=== PATIENT | male | born 1995 | race Caucasian/White ===

== ENCOUNTER 2016-11-04 15:34 | Emergency (ER) | payer BC, OTHER ==
[2016-11-04] MEDS ORDERED: DIPH/PERTUSS(ACELL)/TETANUS VAC/PF 0.5 ML SYR (>=10YO) IM ONE (16:37)
--- NOTE | 2016-11-04 16:37 | ER Document Report ---
ED Medical Screen (RME) - General Chief Complaint: Suicidal Ideation Stated Complaint: LEFT WRIST/INJURY Time Seen by Provider: 11/04/16 16:30 Mode of Arrival: Ambulatory Information source: Patient Notes: This is a 21-year-old man that presents to the emergency suicidal ideations. The patient recently broke up with his girlfriend. He states he has not been able to eat or drink 3 days because of his depression. He has not been able to sleep. He struck a wall with his left hand a few days ago and is having a lot of swelling and pain in the left hand. TRAVEL OUTSIDE OF THE [place] IN LAST 30 DAYS: No Past Medical History Renal/ Medical History: Denies: Hx Peritoneal Dialysis Physical Exam - Vital signs Vitals: Temp Pulse Resp BP Pulse Ox 98.7 F 89 16 142/95 H 98 11/04/16 15:35 11/04/16 15:35 11/04/16 15:35 11/04/16 15:35 11/04/16 15:35 Course - Vital Signs Vital signs: Temp Pulse Resp BP Pulse Ox 98.7 F 89 16 142/95 H 98 11/04/16 15:35 11/04/16 15:35 11/04/16 15:35 11/04/16 15:35 11/04/16 15:35
--- NOTE | 2016-11-04 17:02 | RADIOLOGY REPORT (SQ) ---
EXAM DESCRIPTION: HAND LEFT 3 VIEWS COMPLETED DATE/TIME: 11/04/2016 4:54 pm REASON FOR STUDY: left hand wrist pain COMPARISON: None. EXAM PARAMETERS: NUMBER OF VIEWS: Three views. TECHNIQUE: AP, lateral and oblique radiographic images acquired of the left hand. LIMITATIONS: None. FINDINGS: MINERALIZATION: Normal. BONES: There is an oblique fracture through the head/ neck of the 5th metacarpal. JOINTS: No effusions. SOFT TISSUES: No soft tissue swelling. No foreign body. OTHER: No other significant finding. IMPRESSION: 5th metacarpal fracture. TECHNICAL DOCUMENTATION: JOB ID: [id number] [employer]- All Rights Reserved
--- NOTE | 2016-11-04 17:04 | RADIOLOGY REPORT (SQ) ---
EXAM DESCRIPTION: WRIST LEFT 3 VIEWS COMPLETED DATE/TIME: 11/04/2016 4:54 pm REASON FOR STUDY: left hand and wrist pain COMPARISON: None. NUMBER OF VIEWS: Three views. TECHNIQUE: AP, lateral, and oblique radiographic images acquired of the left wrist. LIMITATIONS: None. FINDINGS: MINERALIZATION: Normal. BONES: There is a fracture through the head/neck of 5th metacarpal with dorsal angulation. No fractu re is present in the wrist. SOFT TISSUES: No soft tissue swelling. No foreign body. OTHER: No other significant finding. IMPRESSION: 5th metacarpal fracture. Negative wrist. TECHNICAL DOCUMENTATION: JOB ID: [id number] [employer]- All Rights Reserved
--- NOTE | 2016-11-04 17:04 | EKG REPORT ---
SEVERITY:- BORDERLINE ECG - SINUS RHYTHM CONSIDER RIGHT VENTRICULAR HYPERTROPHY : Confirmed by: Henny Salinas MD 04-Nov-2016 17:02:59
[2016-11-04 17:17] LABS: ABSOLUTE BASOPHILS # (AUTO) 0.1 10^3/uL (0.0-0.2); ABSOLUTE LYMPHOCYTES (AUTO) 1.8 10^3/uL (0.5-4.7); ABSOLUTE MONOCYTES (AUTO) 1.1 10^3/uL (0.1-1.4); ABSOLUTE NEUT (AUTO) 5.5 10^3/uL (1.7-8.2); BASOPHILS % (AUTO) 0.8 % (0-2); HEMATOCRIT 50.4 % (37.9-51.0); HEMOGLOBIN 16.9 g/dL (13.5-17.0); HGB HCT DIFFERENCE 0.3; LYMPHOCYTES % (AUTO) 21.1 % (13-45); MEAN CORPUSCULAR HEMOGLOBIN 29.6 pg (27.0-33.4); MEAN CORPUSCULAR HGB CONC 33.6 g/dL (32.0-36.0); MEAN CORPUSCULAR VOLUME 88 fl (80-97); MONOCYTES % (AUTO) 13.1 % (3-13); RED BLOOD COUNT 5.72 10^6/uL (4.35-5.55); RED CELL DISTRIBUTION WIDTH 13.3 % (11.5-14.0); WHITE BLOOD COUNT 8.5 10^3/uL (4.0-10.5)
[2016-11-04 17:26] LABS: APPEARANCE,URINE SLIGHTLY-CLOUDY; BILIRUBIN,URINE NEGATIVE (NEGATIVE); GLUCOSE, URINE NEGATIVE (NEGATIVE); KETONES,URINE 80 mg/dL (NEGATIVE); LEUKOCYTE ESTERASE,URINE TRACE (NEGATIVE); NITRITE,URINE NEGATIVE (NEGATIVE); PROTEIN,URINE 30 mg/dL (NEGATIVE); URINE SPECIFIC GRAVITY 1.029
[2016-11-04 17:37] LABS: ALANINE AMINOTRANSFERASE 25 U/L (21-72); ALBUMIN 5.2 g/dL (3.5-5.0); ALKALINE PHOSPHATASE 86 U/L (38-126); ANION GAP 19 (5-19); ASPARTATE AMINO TRANSFERASE 25 U/L (17-59); BILIRUBIN,DIRECT 0.4 mg/dL (0.0-0.4); BILIRUBIN,TOTAL 1.2 mg/dL (0.2-1.3); BLOOD UREA NITROGEN 17 mg/dL (7-20); CALCIUM 10.6 mg/dL (8.4-10.2); CARBON DIOXIDE 19 mmol/L (22-30); CHLORIDE 105 mmol/L (98-107); CREATININE RESULT 1.25 mg/dL (0.52-1.25); GLUCOSE 99 mg/dL (75-110); POTASSIUM 4.2 mmol/L (3.6-5.0); SODIUM 143.4 mmol/L (137-145); TOTAL PROTEIN 9.1 g/dL (6.3-8.2)
[2016-11-04 17:39] LABS: ALCOHOL < 10 mg/dL (NONE DETECTED)
[2016-11-04 17:40] LABS: URINE BARBITURATES SCREEN NEGATIVE; URINE METHADONE SCREEN NEGATIVE; URINE OPIATES LOW NEGATIVE; URINE PHENCYCLIDINE SCREEN NEGATIVE
--- NOTE | 2016-11-04 17:58 | ER Document Report ---
ED Psych Disorder / Suicide - General Mode of Arrival: Ambulatory Information source: Patient TRAVEL OUTSIDE OF THE [place] IN LAST 30 DAYS: No - HPI Patient complains to provider of: Suicidal ideation Associated symptoms: Other - See above <DANITZA SANTANA - Last Filed: 11/04/16 20:36> <ERNA VERGARA - Last Filed: 11/05/16 00:17> - General Chief Complaint: Suicidal Ideation Stated Complaint: suicidal ideation Time Seen by Provider: 11/04/16 16:30 Notes: Patient is a 21 year old male who presents to the emergency department complaining of suicidal ideation this morning. Patient reports he has been unable to sleep and eat for the past 3 days and has been nauseated, patient has been depressed and having anxiety attacks. Patient reports personal difficulties after recently breaking up with his girlfriend and also issues with his father, job, and school all adding to his stress. Patient reports this morning he thought about killing himself but did not have a plan. Patient states that 3 years ago he had similar thoughts and planned on hanging himself. Patient is not currently being treated for depression and anxiety but is not opposed to medications or care. Patient states he lives with his mother and has a brother nearby as a potential support system. Patient also complains of pain in his left hand after punching a metal door 3 days ago. (DANITZA SANTANA) Past Medical History - General Information source: Patient - Social History Smoking Status: Current Every Day Smoker Chew tobacco use (# tins/day): No Frequency of alcohol use: None Drug Abuse: Marijuana Family History: Reviewed & Not Pertinent Patient has suicidal ideation: Yes Patient has homicidal ideation: No Psychiatric Medical History: Reports: Hx Depression - anxiety Surgical Hx: Negative - Immunizations Hx Diphtheria, Pertussis, Tetanus Vaccination: No <DANITZA SANTANA - Last Filed: 11/04/16 20:36> Review of Systems - Review of Systems Constitutional: No symptoms reported EENT: No symptoms reported Cardiovascular: No symptoms reported Respiratory: No symptoms reported Gastrointestinal: No symptoms reported Genitourinary: No symptoms reported Male Genitourinary: No symptoms reported Musculoskeletal: See HPI, Other - Hand pain Skin: No symptoms reported Hematologic/Lymphatic: No symptoms reported Neurological/Psychological: See HPI, Depression, Anxiety, Suicidal ideation -: Yes All other systems reviewed and negative <DANITZA SANTANA - Last Filed: 11/04/16 20:36> Physical Exam <DANITZA SANTANA - Last Filed: 11/04/16 20:36> <ERNA VERGARA - Last Filed: 11/05/16 00:17> - Vital signs Vitals: Temp Pulse Resp BP Pulse Ox 98.7 F 89 16 142/95 H 98 11/04/16 15:35 11/04/16 15:35 11/04/16 15:35 11/04/16 15:35 11/04/16 15:35 - Notes Notes: GENERAL: Alert, interacts well. No acute distress. HEAD: Normocephalic, atraumatic. EYES: Pupils equal, round, and reactive to light. Extraocular movements intact. ENT: Oral mucosa moist, tongue midline. NECK: Full range of motion. Supple. Trachea midline. LUNGS: Clear to auscultation bilaterally, no wheezes, rales, or rhonchi. No respiratory distress. HEART: Regular rate and rhythm. No murmurs, gallops, or rubs. ABDOMEN: Soft, non-tender. Non-distended. Bowel sounds present in all 4 quadrants. EXTREMITIES: Tenderness to palpation over 3rd, 4th, and 5th metacarpal of left and with minimal swelling and ecchymosis consistent with injury in the past week. Pain limits ability to fully extend 3rd, 4th, and 5th digit but they are able to extend fully with assistance. No edema. No cyanosis. NEUROLOGICAL: Alert and oriented x3. Normal speech. PSYCH: Normal affect, normal mood. SKIN: Abrasion over dorsal aspect of 3rd MCP joint on right hand. Bruising over palm of left hand. (DANITZA SANTANA) Course - Laboratory Result Diagrams: 11/04/16 17:04 11/04/16 17:04 <DANITZA SANTANA - Last Filed: 11/04/16 20:36> - Laboratory Result Diagrams: 11/04/16 17:04 11/04/16 17:04 <ERNA VERGARA - Last Filed: 11/05/16 00:17> - Re-evaluation Re-evalutation: 11/04/16 19:35 CBC unremarkable, CMP shows slightly low CO2 at 19 consistent with patient's history that he has not been eating and drinking for 3 days, urine shows 80 of ketones, trace leukocyte esterase but no bacteria and only 4 WBCs. This will be sent for culture, appears contaminated. Urine drug screen confirms to marijuana as patient admitted to. Undetectable salicylate, acetaminophen and alcohol. Hand and wrist x-rays show dorsally angulated distal left fifth metacarpal fracture. This was placed in an ulnar gutter splint. Patient is referred to orthopedics. Patient was seen in conjunction with behavioral health team, we are in agreement that the patient does not meet IVC criteria, is safe for discharge to home. Is not actively suicidal. Patient is started on Zoloft and referred to [facility] for further outpatient therapy and medication management. Patient is living with his mother, will be discharged under her care. Patient also reports difficulty sleeping, patient will be treated with Vistaril for help with sleep. (ERNA VERGARA) - Vital Signs Vital signs: Temp Pulse Resp BP Pulse Ox 98.2 F 90 18 127/86 H 100 11/04/16 19:58 11/04/16 19:58 11/04/16 19:58 11/04/16 19:58 11/04/16 19:58 - Laboratory Laboratory results interpreted by me: 11/04/16 11/04/16 11/04/16 17:04 17:04 17:04 RBC 5.72 H Monocytes % 13.1 H Carbon Dioxide 19 L Calcium 10.6 H Total Protein 9.1 H Albumin 5.2 H Urine Protein 30 H Urine Ketones 80 H Urine Urobilinogen 2.0 H Ur Leukocyte Esterase TRACE H Salicylates < 1.0 L Acetaminophen < 10 L - EKG Interpretation by Me Additional EKG results interpreted by me: 11/04/16 19:35 EKG shows sinus rhythm at a rate of 65, normal axis, normal intervals, no ST segment elevations or depressions, no T-wave inversions but there is T-wave flattening in aVL per my interpretation. (ERNA VERGARA) Procedures - Immobilization Left hand Pre-Proc Neuro Vasc Exam: Normal Immobilizer type: Ulnar, Sling Performed by: PCT Post-Proc Neuro Vasc Exam: Normal, Unchanged from pre-exam Alignment checked and good: Yes <ERNA VERGARA - Last Filed: 11/05/16 00:17> Discharge <DANITZA SANTANA - Last Filed: 11/04/16 20:36> <ERNA VERGARA - Last Filed: 11/05/16 00:17> - Discharge Clinical Impression: Unspecified depressive disorder, Situational hypertension Fracture of fifth metacarpal bone of left hand Qualifiers: Encounter type: initial encounter Fracture type: closed Metacarpal location: neck Fracture alignment: nondisplaced Qualified Code(s): S62.367A - Nondisplaced fracture of neck of fifth metacarpal bone, left hand, initial encounter for closed fracture Condition: Stable Disposition: HOME, SELF-CARE Additional Instructions: DEPRESSION: Your evaluation reveals that you have mental depression. While symptoms may be vague, they often include disturbance of sleep, fatigue, loss of appetite , and general loss of interest in life. While depression may be a side effect of drugs, or a reaction to a major change in your life, many cases have no known cause. If depression is acute, and related to a major loss in your life, you can expect it to clear completely with time. If you have been depressed a long time , are prone to repeated bouts of depression or low mood, or have been thinking of suicide, get help. Depression can be treated with anti-depressant medication and counselling. Long-term depression will often take a few weeks to clear, even with appropriate medication. Follow-up care is important. SUICIDAL IDEATION: Suicidal ideation is a common medical term for thoughts about suicide, which may be as detailed as a formulated plan, without the suicidal act itself. Although most people who undergo suicidal ideation do not commit suicide, some go on to make suicide attempts. The range of suicidal ideation varies greatly from fleeting to detailed planning, role playing, and unsuccessful attempts. While thoughts about suicide are common, most people do not carry out serious actions to commit suicide. Based upon your evaluation and discussion with you, we do not believe you are currently at risk to act upon your thoughts of suicide. You have agreed to return to the Emergency Department, at any time , if you feel inclined to act upon your suicidal thoughts. FOLLOW-UP CARE: Follow-up with [facility] tomorrow morning at 8 AM for your mental health services. If you experience worsening or a significant change in your symptoms, notify the physician immediately or return to the Emergency Department at any time for re-evaluation. Fractured Fifth Metacarpal (Boxer's) You have a fracture of the fifth metacarpal bone in the hand, often called a Boxer's Fracture. The fracture is usually caused by striking the knuckle against a hard surface -- such as hitting a wall with the fist. This fracture heals well. Some degree of angle in the fracture is perfectly acceptable, resulting in only a slightly rounder knuckle. Your physician has determined whether your fracture could benefit from "setting", and has outlined a treatment plan for you. The usual treatment is splinting for four to six weeks -- a cast is not usually necessary. At first, the injury should be elevated and ice packed. Please call Dr. Aevry from orthopedic surgery tomorrow to discuss your treatment further. They will arrange to see you in follow-up within the next week. Contact the doctor at once if swelling or pain becomes severe, or if numbness develops. Prescriptions: Hydroxyzine Pamoate [Vistaril 50 mg Capsule] 50 mg PO QHS #14 capsule Sertraline HCl [Zoloft 50 mg Tablet] 50 mg PO DAILY #30 tablet Referrals: [facility] [Outside] - 11/05/16 8:00 am CHASE CORONA MD [ACTIVE STAFF] - Follow up in 1 week Scribe Attestation: 11/05/16 00:17 I personally performed the services described in the documentation, reviewed and edited the documentation which was dictated to the scribe in my presence, and it accurately records my words and actions. (ERNA VERGARA) Scribe Documentation - Scribe Written by Gerardo:: gerardo Gardner, 11/04/16, [id number] acting as scribe for :: Luke <DANITZA SANTANA - Last Filed: 11/04/16 20:36>
--- NOTE | 2016-11-04 18:35 | ER Document Report ---
ED Psych Disorder / Suicide - General Chief Complaint: Suicidal Ideation Stated Complaint: LEFT WRIST/INJURY Time Seen by Provider: 11/04/16 16:30 Mode of Arrival: Ambulatory TRAVEL OUTSIDE OF THE [place] IN LAST 30 DAYS: No - HPI Notes: This is a 21-year-old man that presents to the emergency suicidal ideations. The patient recently broke up with his girlfriend. He states he has not been able to eat or drink 3 days because of his depression. He has not been able to sleep. He struck a wall with his left hand a few days ago and is having a lot of swelling and pain in the left hand. Patient disclosed that he felt depressed for a long time and this is the first time he has never told anybody. He continued to state that he is suicidal. Patient states that he broke up with his girlfriend 3 days ago. He continued disclosed that he hit a metal door has been so hard on him. He states that he "kind of freaked out." He continued disclosed that at first it was just depression however after he left he felt "worse and worse." He stated that he started to think of suicide about 1 or 2:00 this afternoon stating that he thought "it would be better if he was not there." He continued disclosed that he does not want to put this on anyone. He states that he does not feel he is worse to help. He continued disclosed that everything that has been hard on him it is not just his growth. He states that he has been trying to get his GED for many years. He continued disclosed that has been difficult because of a learning disorder. He states that he also has had difficulty with finding employment and difficulty with his father. Patient is alert and orientated to person place time and circumstance. Mood is dysphoric with tearful affect. Patient endorses suicidal ideation with no plan means or intent. Patient denies homicidal ideation. Patient denies auditory visual hallucinations; patient is not demonstrating any behaviors congruent with responding to internal stimuli. No delusions are noted. Thought process is currently organized and linear. Conversational speech was within normal rate tone and prosody. Eye contact was well-maintained. Intellectual abilities appear to be within average range with a self-report of learning disability. Attention and concentration are good. Insight, judgment, impulse control is fair. 311 (F32.9) unspecified depressive disorder 10\\plan: Patient is psychiatrically clear for discharge. Patient does not meet IVC criteria per [place] GS 120 2C. Patient endorses suicidal ideation however he has no plans means or intent. Patient is not in psychosis presents by organized linear thought process and eye contact was well-maintained. Patient is recommended for outpatient services. Dr. Walter was consulted on the care management of this patient; attending physician is in agreement with recommendations and disposition. Past Medical History - General Information source: Patient - Social History Smoking Status: Current Every Day Smoker Chew tobacco use (# tins/day): No Frequency of alcohol use: None Drug Abuse: Marijuana Family History: Reviewed & Not Pertinent Patient has suicidal ideation: Yes Patient has homicidal ideation: No Renal/ Medical History: Denies: Hx Peritoneal Dialysis Psychiatric Medical History: Reports: Hx Depression - anxiety Surgical Hx: Negative - Immunizations Hx Diphtheria, Pertussis, Tetanus Vaccination: No Physical Exam - Vital signs Vitals: Temp Pulse Resp BP Pulse Ox 98.7 F 89 16 142/95 H 98 11/04/16 15:35 11/04/16 15:35 11/04/16 15:35 11/04/16 15:35 11/04/16 15:35 Course - Vital Signs Vital signs: Temp Pulse Resp BP Pulse Ox 98.7 F 89 16 142/95 H 98 11/04/16 15:35 11/04/16 15:35 11/04/16 15:35 11/04/16 15:35 11/04/16 15:35 - Laboratory Result Diagrams: 11/04/16 17:04 11/04/16 17:04 Laboratory results interpreted by me: 11/04/16 11/04/16 11/04/16 17:04 17:04 17:04 RBC 5.72 H Monocytes % 13.1 H Carbon Dioxide 19 L Calcium 10.6 H Total Protein 9.1 H Albumin 5.2 H Urine Protein 30 H Urine Ketones 80 H Urine Urobilinogen 2.0 H Ur Leukocyte Esterase TRACE H Salicylates < 1.0 L Acetaminophen < 10 L Discharge - Discharge Clinical Impression: Unspecified depressive disorder Condition: Stable Disposition: HOME, SELF-CARE Additional Instructions: DEPRESSION: Your evaluation reveals that you have mental depression. While symptoms may be vague, they often include disturbance of sleep, fatigue, loss of appetite , and general loss of interest in life. While depression may be a side effect of drugs, or a reaction to a major change in your life, many cases have no known cause. If depression is acute, and related to a major loss in your life, you can expect it to clear completely with time. If you have been depressed a long time , are prone to repeated bouts of depression or low mood, or have been thinking of suicide, get help. Depression can be treated with anti-depressant medication and counselling. Long-term depression will often take a few weeks to clear, even with appropriate medication. Follow-up care is important. SUICIDAL IDEATION: Suicidal ideation is a common medical term for thoughts about suicide, which may be as detailed as a formulated plan, without the suicidal act itself. Although most people who undergo suicidal ideation do not commit suicide, some go on to make suicide attempts. The range of suicidal ideation varies greatly from fleeting to detailed planning, role playing, and unsuccessful attempts. While thoughts about suicide are common, most people do not carry out serious actions to commit suicide. Based upon your evaluation and discussion with you, we do not believe you are currently at risk to act upon your thoughts of suicide. You have agreed to return to the Emergency Department, at any time , if you feel inclined to act upon your suicidal thoughts. FOLLOW-UP CARE: Follow-up with [facility] tomorrow morning at 8 AM for your mental health services. If you experience worsening or a significant change in your symptoms, notify the physician immediately or return to the Emergency Department at any time for re-evaluation. Referrals: [facility] [Outside] - 11/05/16 8:00 am
[2016-11-04] MEDS ORDERED: ONDANSETRON 4 MG TAB.RAPDIS PO ONE (19:34)
[2016-11-04] MEDS ORDERED: HYDROCODONE/ACETAMINOPHEN 5-325 MG TABLET PO ONE (19:47)
[2016-11-04 20:01] VITALS: BP 127/86
== END 2016-11-04 20:05 | disposition home or self-care (01) ==
LOC: ER 15:34
PROC: 2W3FX1Z Immobilization of Left Hand using Splint (ICD-10-PCS; principal; 2016-11-04)
DX: F32.9 Major depressive disorder, single episode, unspecified (principal); S62.367A Nondisplaced fracture of neck of fifth metacarpal bone, left hand, initial encounter for closed fracture; R45.851 Suicidal ideations; W22.09XA Striking against other stationary object, initial encounter; I10 Essential (primary) hypertension; F17.200 Nicotine dependence, unspecified, uncomplicated
CPT/HCPCS: 93005; 99284; 36415; 80307 ×4; 85025; 80053; 81001; 73130; 73110; 93010; 29125; S0119

== ENCOUNTER 2016-12-23 11:49 | Emergency (ER) | payer OTHER ==
[2016-12-23] MEDS ORDERED: CEFAZOLIN 1 GM/D5W RTU 50 ML IV ONE (12:18)
[2016-12-23] MEDS ORDERED: DIPH/PERTUSS(ACELL)/TETANUS VAC/PF 0.5 ML SYR (>=10YO) IM ONE (12:18)
--- NOTE | 2016-12-23 12:24 | ER Document Report ---
ED Extremity Problem, Lower - General Mode of Arrival: Medic Information source: Patient TRAVEL OUTSIDE OF THE [place] IN LAST 30 DAYS: No - HPI Patient complains to provider of: Injury Location: Leg - left diaz Occurred: Just prior to arrival Where: Work Associated symptoms: Other - see above Exacerbated by: Movement, Walking <JES MCWILLIAMS - Last Filed: 12/23/16 16:43> - HPI Pain Level: 3 <ERNA VERGARA - Last Filed: 12/23/16 16:51> - General Chief Complaint: Leg Injury Stated Complaint: LEFT LEG INJURY Time Seen by Provider: 12/23/16 12:01 Notes: Patient is a 21 year old male who presents to the ED with complaints of an avulsion to his left diaz secondary to scraping a 200-250 pound metal lid down his leg while at work just [employer]. Patient is able to walk however it is painful to bare weight. Patient is unsure when his last tetanus vaccination was. (JES MCWILLIAMS) - Related Data Allergies/Adverse Reactions: No Known Allergies Allergy (Unverified 12/23/16 11:53) Past Medical History - General Information source: Patient - Social History Smoking Status: Current Every Day Smoker Smoking Education Provided: Yes - Greater than 5 mintues Frequency of alcohol use: Occasional Drug Abuse: None Family History: Reviewed & Not Pertinent Renal/ Medical History: Denies: Hx Peritoneal Dialysis Psychiatric Medical History: Reports: Hx Depression - anxiety - Immunizations Hx Diphtheria, Pertussis, Tetanus Vaccination: No <JES MCWILLIAMS - Last Filed: 12/23/16 16:43> Review of Systems - Review of Systems Constitutional: No symptoms reported EENT: No symptoms reported Cardiovascular: No symptoms reported Respiratory: No symptoms reported Gastrointestinal: No symptoms reported Genitourinary: No symptoms reported Male Genitourinary: No symptoms reported Musculoskeletal: See HPI, Other - left leg pain Skin: See HPI, Other - avulsion to left diaz Hematologic/Lymphatic: No symptoms reported Neurological/Psychological: No symptoms reported <JES MCWILLIAMS - Last Filed: 12/23/16 16:43> Physical Exam <JES MCWILLIAMS - Last Filed: 12/23/16 16:43> <ERNA VERGARA - Last Filed: 12/23/16 16:51> - Vital signs Vitals: Temp Pulse Resp BP Pulse Ox 98.0 F 65 19 133/83 H 100 12/23/16 11:53 12/23/16 11:53 12/23/16 11:53 12/23/16 11:53 12/23/16 11:53 - Notes Notes: GENERAL: Alert, interacts well. No acute distress. HEAD: Normocephalic, atraumatic. EYES: Pupils equal, round, and reactive to light. Extraocular movements intact. ENT: Oral mucosa moist, tongue midline. NECK: Full range of motion. Supple. Trachea midline. LUNGS: No respiratory distress. EXTREMITIES: Moves all 4 extremities spontaneously. No edema. No cyanosis. Large flap shaped avulsion to skin on distal left tibia, [id number], able to visualize tibia and some muscle and tendon. No defect noted to bone. Pulses intact, capillary refill intact, full ROM, full muscle strength, sensation intact on left leg. NEUROLOGICAL: Alert and oriented x3. Normal speech. PSYCH: Normal affect, normal mood. SKIN: Warm, dry, normal turgor. Large flap shaped avulsion to skin on distal left tibia. (JES MCWILLIAMS) Course - Consults Power Checker Time consulted: 12:18 Dr. Avery Time consulted: 13:12 Consulted provider: follow-up in office <JES MCWILLIAMS - Last Filed: 12/23/16 16:43> <ERNA VERGARA - Last Filed: 12/23/16 16:51> - Re-evaluation Re-evalutation: 12/23/16 14:[address] Avery the orthopedic surgeon commission agent [employer], states that I should get an x-ray and so long as there is no major bony defect and there are no foreign bodies that I should repair the wound in the emergency department after irrigating it and he will follow the patient on antibiotics as an outpatient. I did discuss this plan with the patient after a normal x-ray was returned and he is agreeable to this plan. Patient did receive Dilaudid for pain control here as well as Ancef for infection prevention. (ERNA VERGARA) - Vital Signs Vital signs: Temp Pulse Resp BP Pulse Ox 98.0 F 65 19 133/83 H 100 12/23/16 11:53 12/23/16 11:53 12/23/16 11:53 12/23/16 11:53 12/23/16 11:53 - Consults Power Checker Reason for consultation: 12/23/16 12:[address] Avery, orthopedist commission agent [employer]. Left a message on his phone to call me. (JES MCWILLIAMS) Dr. Avery Reason for consultation: 12/23/16 13:12 Discussed patient. He said to get an x ray, if there are no foreign bodies or a large chunk of bone missing I can clean and repair in the ED. He will be happy to see patient in his office and follow it. If I prefer, he will be in the hospital at 1630 to do a hip repair and he can assess the patient then if I am uncomfortable. 12/23/16 14:34 Discussed patient and x ray results. I will proceed with suturing the wound. (JES MCWILLIAMS) Procedures - Laceration/Wound Repair Left anterior tibia Wound length (cm): 12 Wound's Depth, Shape: Into muscle, Flap Laceration pre-procedure: Sterile PPE donned, Sterile drapes applied, Shur- Clens applied Anesthetic type: 1% Lidocaine w/epi Volume Anesthetic (mLs): 20 Wound explored: Clean, No foreign body removed Irrigated w/ Saline (mLs): 1,000 Wound Debrided: Minimal Wound Repaired With: Sutures Suture Size/Type: 4:0, 3:0, Ethilon Number of Sutures: 13 Layer Closure?: Yes Deep Layer Suture Size/Type: 4:0, Other - Vicryl Number Deep Layer Sutures: 20 Post-procedure wound care: Sterile dressing applied Post-procedure NV exam normal: Yes Complications: No <ERNA VERGARA - Last Filed: 12/23/16 16:51> Discharge <JES MCWILLIAMS - Last Filed: 12/23/16 16:43> <ERNA VERGARA - Last Filed: 12/23/16 16:51> - Discharge Clinical Impression: Laceration of left lower leg Qualifiers: Encounter type: initial encounter Qualified Code(s): S81.812A - Laceration without foreign body, left lower leg, initial encounter Condition: Stable Disposition: HOME, SELF-CARE Additional Instructions: Laceration Care Your laceration has been sutured to keep the skin edges aligned during healing. Please have the sutures removed in 10-14 days. Please follow the care instructions the doctor has outlined for you and return for further care, according to the schedule you've been given. Keep the wound and dressing clean. Unless you were told otherwise, you may shower daily, blotting the wound dry with a clean, unused towel. At other times, If the dressing gets wet or blood soaked, remove it and blot the wound dry, then reapply a new dressing. Unless you were instructed otherwise, dressings should be changed at least daily. If any signs of infection occur (swelling, redness, increasing tenderness, red streaks, tender lumps in the armpit or groin above the laceration, or fever) , see the doctor immediately. Please follow-up with Dr. Avery. Call his office tomorrow morning to arrange a follow-up appointment. Prescriptions: Amox Tr/Potassium Clavulanate [Augmentin 875-125 Tablet] 1 tab PO BID 10 Days Referrals: CHASE CORONA MD [ACTIVE STAFF] - Follow up in 3-5 days (Call for follow -up appointment tomorrow morning.) Scribe Attestation: 12/23/16 16:51 I personally performed the services described in the documentation, reviewed and edited the documentation which was dictated to the scribe in my presence, and it accurately records my words and actions. (ERNA VERGARA) Scribe Documentation - Scribe Written by Gerardo:: gerardo Hoyt, 12/23/2016, 1219 acting as scribe for :: Luke <JES MCWILLIAMS - Last Filed: 12/23/16 16:43>
[2016-12-23] MEDS ORDERED: HYDROMORPHONE HCL INJ/PF 2 MG/ML AMPULE IV ONE ×3 (13:11→14:59)
--- NOTE | 2016-12-23 14:14 | RADIOLOGY REPORT (SQ) ---
EXAM DESCRIPTION: TIBIA FIBULA LEFT COMPLETED DATE/TIME: 12/23/2016 2:02 pm REASON FOR STUDY: dropped large metal plate on tibia COMPARISON: None. NUMBER OF VIEWS: Two views. TECHNIQUE: Two radiographic images acquired of the left tibia and fibula to include the knee and ank le in at least one projection. LIMITATIONS: None. FINDINGS: MINERALIZATION: Normal. BONES: No acute fracture or dislocation. No worrisome bone lesions. SOFT TISSUES: The soft tissue injury is seen on the medial aspect the distal leg. OTHER: No other significant finding. IMPRESSION: Soft tissue injury with no osseous abnormality. TECHNICAL DOCUMENTATION: JOB ID: [id number] [employer]- All Rights Reserved
[2016-12-23] MEDS ORDERED: LIDOCAINE 1% INJ-PF (10 MG/ML) 30 ML SDV INJ ONE (14:30)
[2016-12-23] MEDS ORDERED: BUPIVACAINE HCL 0.5%-EPI 1:200000 INJ/PF 30 ML VIAL INJ ONE (14:32)
[2016-12-23] MEDS ORDERED: LIDOCAINE 0.5%/EPINEPHRINE INJ 50 ML VIAL INJ ONE (14:55)
[2016-12-23] MEDS ORDERED: HYDROCODONE/ACETAMINOPHEN 5-325 MG 6 TAB/DSPK PO PRN (16:50)
[2016-12-23 17:04] VITALS: BP 144/68
== END 2016-12-23 17:11 | disposition home or self-care (01) ==
LOC: ER 11:49
PROC: 0JQP0ZZ Repair Left Lower Leg Subcutaneous Tissue and Fascia, Open Approach (ICD-10-PCS; principal; 2016-12-23)
DX: S81.812A Laceration without foreign body, left lower leg, initial encounter (principal); W22.8XXA Striking against or struck by other objects, initial encounter; Y99.0 Civilian activity done for income or pay; F17.200 Nicotine dependence, unspecified, uncomplicated; Z71.6 Tobacco abuse counseling
CPT/HCPCS: 73590; 90715; 12034; J0690; J3490; J1170

== ENCOUNTER 2016-12-24 18:16 | Inpatient (IN) | payer OTHER ==
[2016-12-24] MEDS ORDERED: PROMETHAZINE HCL 25 MG TABLET PO ONE (19:18)
[2016-12-24] MEDS ORDERED: OXYCODONE-ACETAMINOPHEN 5-325 MG TABLET PO ONE (19:18)
--- NOTE | 2016-12-24 19:27 | ER Document Report ---
ED Medical Screen (RME) - General Chief Complaint: Leg Pain Stated Complaint: WOUND RECHECK Time Seen by Provider: 12/24/16 19:15 Notes: Patient sustained a laceration to his left lower leg yesterday and was seen here yesterday and the wound was sutured. He was put on Augmentin. The dressing has been changed 3 times, thus far, and the dressing change this afternoon the lower leg below the wound was noted to be swollen and the wound itself was noted to be pink and red in color, both of which are changes from before. Patient is not aware of any fever. TRAVEL OUTSIDE OF THE [place] IN LAST 30 DAYS: No - Related Data Allergies/Adverse Reactions: No Known Allergies Allergy (Verified 12/24/16 18:17) Past Medical History - Social History Chew tobacco use (# tins/day): No Frequency of alcohol use: Occasional Drug Abuse: None Renal/ Medical History: Denies: Hx Peritoneal Dialysis Psychiatric Medical History: Reports: Hx Depression - anxiety - Immunizations Hx Diphtheria, Pertussis, Tetanus Vaccination: No Physical Exam - Vital signs Vitals: Temp Pulse Resp BP Pulse Ox 97.7 F 105 H 20 152/80 H 99 12/24/16 18:17 12/24/16 18:17 12/24/16 18:17 12/24/16 18:17 12/24/16 18:17 Course - Vital Signs Vital signs: Temp Pulse Resp BP Pulse Ox 97.7 F 105 H 20 152/80 H 99 12/24/16 18:17 12/24/16 18:17 12/24/16 18:17 12/24/16 18:17 12/24/16 18:17
--- NOTE | 2016-12-24 20:15 | ER Document Report ---
ED Extremity Problem, Lower - General Mode of Arrival: Ambulatory Information source: Patient TRAVEL OUTSIDE OF THE [place] IN LAST 30 DAYS: No <DARNELL BETH - Last Filed: 12/24/16 23:17> <ERNA VERGARA - Last Filed: 12/25/16 00:43> - General Chief Complaint: Leg Pain Stated Complaint: WOUND RECHECK Time Seen by Provider: 12/24/16 19:15 Notes: Patient is a 21-year-old male who presents to the emergency department today with concerns of possible infection to a recently repaired laceration. Patient had this laceration repaired yesterday, he was given Ancef here, and sent home on Augmentin. Muscle, tendon, and bone were exposed prior to suturing. There is increased swelling and redness over the laceration. (DARNELL BETH) - Related Data Allergies/Adverse Reactions: No Known Allergies Allergy (Verified 12/24/16 18:17) Home Medications: Current Home Medications No Home Medications 12/24/16 [History] Past Medical History - General Information source: Patient - Social History Smoking Status: Current Every Day Smoker Cigarette use (# per day): Yes Chew tobacco use (# tins/day): No Frequency of alcohol use: Occasional Drug Abuse: None Lives with: Family Family History: Reviewed & Not Pertinent Patient has suicidal ideation: No Patient has homicidal ideation: No Psychiatric Medical History: Reports: Hx Anxiety, Hx Depression Traumatic Medical History: Reports: Other - Hx large laceration to distal left leg anteriorly after dropping 200-250 pound metal lid on leg at work - Immunizations Hx Diphtheria, Pertussis, Tetanus Vaccination: No <DARNELL BETH - Last Filed: 12/24/16 23:17> Review of Systems - Review of Systems Constitutional: No symptoms reported EENT: No symptoms reported Cardiovascular: No symptoms reported Respiratory: No symptoms reported Gastrointestinal: No symptoms reported Genitourinary: No symptoms reported Male Genitourinary: No symptoms reported Musculoskeletal: No symptoms reported Skin: See HPI, Other - possible infection to wound Hematologic/Lymphatic: No symptoms reported Neurological/Psychological: No symptoms reported -: Yes All other systems reviewed and negative <DARNELL BETH - Last Filed: 12/24/16 23:17> Physical Exam <DARNELL BETH - Last Filed: 12/24/16 23:17> <ERNA VERGARA - Last Filed: 12/25/16 00:43> - Vital signs Vitals: Temp Pulse Resp BP Pulse Ox 97.7 F 105 H 20 152/80 H 99 12/24/16 18:17 12/24/16 18:17 12/24/16 18:17 12/24/16 18:17 12/24/16 18:17 - Notes Notes: Physical Exam: General: Alert, appears well. HEENT: Normocephalic. Atraumatic. PERRL. Extraocular movements intact. Oropharynx clear. Neck: Supple. Non-tender. Respiratory: No respiratory distress. Abdominal: Normal Inspection. No distension. Back: Non-tender. No deformity or step off. Extremities: Moves all four extremities. Upper extremities: Normal inspection. Normal ROM. Lower extremities: 6x6 cm freshly sutured laceration to left distal left tibia. Surrounding erythema extended 8cm inferiorly, 6cm medially, and 6cm superiorly. Significant swelling over medial malleolus and anterior portion of left ankle. Mild swelling over lateral malleolus. Extensive bruising medially. No purulent drainage. Good pulses. Brisk capillary refill. Neurological: Normal cognition. AAOx4. Normal speech. Psychological: Normal affect. Normal Mood. Skin: see lower extremity exam (DARNELL BETH) Course - Laboratory Result Diagrams: 12/24/16 20:30 12/24/16 20:30 - Consults Ortho Time consulted: 20:18 - Spoke with Dr. Waldron, agrees to admit the patient. <DARNELL BTEH - Last Filed: 12/24/16 23:17> - Laboratory Result Diagrams: 12/24/16 20:30 12/24/16 20:30 <ERNA VERGARA - Last Filed: 12/25/16 00:43> - Re-evaluation Re-evalutation: 12/24/16 20:[address] Waldron, agrees to admit the patient for IV antibiotics for the cellulitis developing around the wound and consideration of washout should this not improve by morning. (ERNA VERGARA) - Vital Signs Vital signs: Temp Pulse Resp BP Pulse Ox 97.5 F 60 16 117/90 H 100 12/24/16 23:10 12/24/16 23:10 12/24/16 23:10 12/24/16 23:10 12/24/16 23:10 - Laboratory Laboratory results interpreted by me: 12/24/16 20:30 RDW 14.3 H Monocytes % 17.0 H Absolute Monocytes 1.6 H Discharge <DARNELL BETH - Last Filed: 12/24/16 23:17> - Discharge Admitting Provider: [facility] Unit Admitted: Surgical Floor <ERNA VERGARA - Last Filed: 12/25/16 00:43> - Discharge Clinical Impression: Left leg cellulitis Laceration of left lower leg Qualifiers: Encounter type: sequela Qualified Code(s): S81.812S - Laceration without foreign body, left lower leg, sequela Condition: Stable Disposition: ADMITTED INPATIENT Scribe Attestation: 12/25/16 00:43 I personally performed the services described in the documentation, reviewed and edited the documentation which was dictated to the scribe in my presence, and it accurately records my words and actions. (ERNA VERGARA) Scribe Documentation - Scribe Written by Marlee:: Marlee Mane, 12/24/2016 2317 acting as scribe for :: Luke <DARNELL BETH - Last Filed: 12/24/16 23:17>
[2016-12-24] MEDS ORDERED: HYDROMORPHONE HCL INJ/PF 2 MG/ML AMPULE IV ONE (20:20)
[2016-12-24] MEDS ORDERED: CLINDAMYCIN 600 MG/D5W RTU 50 ML IV ONE (20:20)
[2016-12-24 20:54] LABS: ABSOLUTE EOSINOPHILS # (AUTO) 0.1 10^3/uL (0.0-0.6); ABSOLUTE LYMPHOCYTES (AUTO) 1.8 10^3/uL (0.5-4.7); ABSOLUTE MONOCYTES (AUTO) 1.6 10^3/uL (0.1-1.4); ABSOLUTE NEUT (AUTO) 5.8 10^3/uL (1.7-8.2); BASOPHILS % (AUTO) 0.4 % (0-2); EOSINOPHILS % (AUTO) 0.7 % (0-6); HEMATOCRIT 43.8 % (37.9-51.0); HEMOGLOBIN 14.9 g/dL (13.5-17.0); HGB HCT DIFFERENCE 0.9; MEAN CORPUSCULAR HEMOGLOBIN 31.1 pg (27.0-33.4); MEAN CORPUSCULAR HGB CONC 34.2 g/dL (32.0-36.0); MEAN CORPUSCULAR VOLUME 91 fl (80-97); RED BLOOD COUNT 4.81 10^6/uL (4.35-5.55); RED CELL DISTRIBUTION WIDTH 14.3 % (11.5-14.0); SEGMENTED NEUTROPHILS % (AUTO) 62.9 % (42-78); WHITE BLOOD COUNT 9.3 10^3/uL (4.0-10.5)
[2016-12-24 21:18] LABS: ALANINE AMINOTRANSFERASE 28 U/L (21-72); ALBUMIN 4.2 g/dL (3.5-5.0); ALKALINE PHOSPHATASE 82 U/L (38-126); ANION GAP 13 (5-19); ASPARTATE AMINO TRANSFERASE 21 U/L (17-59); BILIRUBIN,DIRECT 0.4 mg/dL (0.0-0.4); BILIRUBIN,TOTAL 0.7 mg/dL (0.2-1.3); BLOOD UREA NITROGEN 19 mg/dL (7-20); CALCIUM 9.6 mg/dL (8.4-10.2); CARBON DIOXIDE 23 mmol/L (22-30); CHLORIDE 103 mmol/L (98-107); GLUCOSE 91 mg/dL (75-110); POTASSIUM 4.6 mmol/L (3.6-5.0); SODIUM 139.3 mmol/L (137-145); TOTAL PROTEIN 7.1 g/dL (6.3-8.2)
[2016-12-24] MEDS ORDERED: RINGERS SOLUTION,LACTATED 1,000 ML IV PRN (22:42)
[2016-12-24] MEDS ORDERED: DEXTROSE 40% GEL 15 GM TUBE PO PRN ×2 (22:42)
[2016-12-24] MEDS ORDERED: ONDANSETRON HCL INJ/PF 4 MG/2 ML SDV IV PRN ×2 (22:42→22:53)
[2016-12-24] MEDS ORDERED: GLUCAGON,HUMAN RECOMB 1 MG INJ SUBCUT PRN (22:42)
[2016-12-24] MEDS ORDERED: DEXTROSE 50%-WATER 25 GM/50 ML DISP.SYRIN IV PRN ×2 (22:42)
[2016-12-24] MEDS ORDERED: OXYCODONE-ACETAMINOPHEN 5-325 MG TABLET PO PRN (22:45)
[2016-12-24] MEDS: MORPHINE SULFATE 10 MG/ML INJ IV PRN (23:35)
[2016-12-25] MEDS: CLINDAMYCIN 600 MG/D5W RTU 600 MG/50 ML RTUPB IV SCH ×2 (05:03→13:33)
[2016-12-25 06:13] LABS: ABSOLUTE EOSINOPHILS # (AUTO) 0.1 10^3/uL (0.0-0.6); ABSOLUTE LYMPHOCYTES (AUTO) 2.5 10^3/uL (0.5-4.7); ABSOLUTE MONOCYTES (AUTO) 1.3 10^3/uL (0.1-1.4); ABSOLUTE NEUT (AUTO) 3.2 10^3/uL (1.7-8.2); BASOPHILS % (AUTO) 0.5 % (0-2); EOSINOPHILS % (AUTO) 1.4 % (0-6); HEMATOCRIT 40.3 % (37.9-51.0); HEMOGLOBIN 13.7 g/dL (13.5-17.0); HGB HCT DIFFERENCE 0.8; LYMPHOCYTES % (AUTO) 34.6 % (13-45); MEAN CORPUSCULAR HEMOGLOBIN 30.9 pg (27.0-33.4); MEAN CORPUSCULAR HGB CONC 33.9 g/dL (32.0-36.0); MEAN CORPUSCULAR VOLUME 91 fl (80-97); MONOCYTES % (AUTO) 18.7 % (3-13); RED BLOOD COUNT 4.42 10^6/uL (4.35-5.55); RED CELL DISTRIBUTION WIDTH 14.7 % (11.5-14.0); SEGMENTED NEUTROPHILS % (AUTO) 44.8 % (42-78); WHITE BLOOD COUNT 7.2 10^3/uL (4.0-10.5)
--- NOTE | 2016-12-25 08:00 | PDOC H&P ---
History of Present Illness Admission Date/PCP: 12/24/16 22:43 History of Present Illness: DARNELL FLORES is a 21 year old male sustained an injury while at work on when a steel bar fell onto his left tibia. Patient was seen in the emergency room at that time we received Ancef the wound was cleansed and subsequently closed. He was sent home on Augmentin but did not fill the prescription. He then noticed over the next 24 hours increasing pain swelling and redness and was concerned about infection. He was seen by the emergency room will also was concerned about infection. He received clindamycin. Since last evening and his IV antibiotics he has seen notably improvement with decreased redness and swelling. Did have some numbness and tingling initially but this is also subsided. Denies fever chills or sweats. Pain 08/24. Past Medical History Psychiatric Medical History: Reports: Depression Traumatic Medical History: Reports: Other - Hx large laceration to distal left leg anteriorly after dropping 200-250 pound metal lid on leg at work Social History Lives with: Family Smoking Status: Current Every Day Smoker Cigarettes Packs Per Day: 10 Number of Years Smokin Last Time Smoked: today Frequency of Alcohol Use: Occasional Hx Recreational Drug Use: No Drugs: None Hx Prescription Drug Abuse: No - Advance Directive Resuscitation Status: Full Code Family History Family History: Reviewed & Not Pertinent Parental Family History Reviewed: No Children Family History Reviewed: No Sibling(s) Family History Reviewed.: No Medication/Allergy Home Medications: Clindamycin HCl [Cleocin 300 mg Capsule] 600 mg PO Q8 #168 cap 12/25/16 Oxycodone HCl/Acetaminophen [Percocet 5-325 mg Tablet] 1 - 2 tab PO ASDIR PRN # 30 tablet 12/25/16 Allergies/Adverse Reactions: No Known Allergies Allergy (Verified 12/24/16 18:17) Review of Systems Constitutional: ABSENT: chills, fever(s), headache(s), weight gain, weight loss Eyes: ABSENT: visual disturbances Ears: ABSENT: hearing changes Cardiovascular: ABSENT: chest pain, dyspnea on exertion, edema, orthropnea, palpitations Respiratory: ABSENT: cough, hemoptysis Gastrointestinal: ABSENT: abdominal pain, constipation, diarrhea, hematemesis, hematochezia, nausea, vomiting Genitourinary: ABSENT: dysuria, hematuria Musculoskeletal: PRESENT: as per HPI Integumentary: ABSENT: rash, wounds Neurological: ABSENT: abnormal gait, abnormal speech, confusion, dizziness, focal weakness, syncope Psychiatric: ABSENT: anxiety, depression, homidical ideation, suicidal ideation Endocrine: ABSENT: cold intolerance, heat intolerance, menstrual abnormalities, polydipsia, polyuria Hematologic/Lymphatic: ABSENT: easy bleeding, easy bruising, lymphadenopathy Physical Exam Vital Signs: Temp Pulse Resp BP Pulse Ox 97.5 F 60 16 117/90 H 100 12/24/16 23:10 12/24/16 23:10 12/24/16 23:10 12/24/16 23:10 12/24/16 23:10 Intake & Output 12/24/16 12/25/16 12/26/16 06:59 06:59 06:59 Output Total 350 Balance -350 Weight 60.5 kg General appearance: PRESENT: no acute distress, well-developed, well-nourished Head exam: PRESENT: atraumatic, normocephalic Eye exam: PRESENT: conjunctiva pink, EOMI, PERRLA. ABSENT: scleral icterus Ear exam: PRESENT: normal external ear exam Mouth exam: PRESENT: moist, tongue midline Neck exam: PRESENT: full ROM. ABSENT: carotid bruit, JVD, lymphadenopathy, thyromegaly Respiratory exam: PRESENT: unlabored Cardiovascular exam: PRESENT: RRR. ABSENT: diastolic murmur, rubs, systolic murmur Pulses: PRESENT: normal dorsalis pedis pul, +2 pedal pulses bilateral Vascular exam: PRESENT: normal capillary refill GI/Abdominal exam: PRESENT: normal bowel sounds, soft. ABSENT: distended, guarding, mass, organolmegaly, rebound, tenderness Rectal exam: PRESENT: deferred Musculoskeletal exam: PRESENT: other - Left lower extremity: Y-shaped laceration along the medial aspect of the distal tibia. Mild erythema along the laceration site no diffuse erythema appreciated. Mild swelling along the foot and ankle. Patient is intact plantar flexion/dorsiflexion however weakness with dorsiflexion secondary to pain. Intact sensation to light touch. Dorsalis pedis pulse 2+. No tracking erythema. Neurological exam: PRESENT: alert, awake, oriented to person, oriented to place , oriented to time, oriented to situation, CN II-XII grossly intact. ABSENT: motor sensory deficit Psychiatric exam: PRESENT: appropriate affect, normal mood. ABSENT: homicidal ideation, suicidal ideation Skin exam: PRESENT: dry, intact, warm. ABSENT: cyanosis, rash Results Laboratory Results: 12/25/16 05:06 12/25/16 05:06 WBC 7.2 RBC 4.42 Hgb 13.7 Hct 40.3 MCV 91 MCH 30.9 MCHC 33.9 RDW 14.7 H Plt Count 185 Seg Neutrophils % 44.8 Lymphocytes % 34.6 Monocytes % 18.7 H Eosinophils % 1.4 Basophils % 0.5 Absolute Neutrophils 3.2 Absolute Lymphocytes 2.5 Absolute Monocytes 1.3 Absolute Eosinophils 0.1 Absolute Basophils 0.0 Assessment & Plan - Diagnosis (1) Left leg cellulitis Is this a current diagnosis for this admission?: YesPlan: Patient sustained a mild cellulitis on his left lower extremity. There is no sign or symptoms of underlying bone involvement or osteomyelitis. There is no significant redness or swelling on examination today thus I have recommended 24- hour course of IV antibiotics we will then send him home on p.o. clindamycin along with Percocet for pain. If patient's symptoms do not improve over the day as they have in the past 12 hours he may require longer admission.
[2016-12-25] MEDS: MORPHINE SULFATE 10 MG/ML INJ IV PRN (09:34)
[2016-12-25 14:42] VITALS: BP 117/65
--- NOTE | 2016-12-29 08:39 | PDOC DISCHARGE SUMMARY ---
General - Admit/Disc Date/PCP Admission Date/Primary Care Provider: 12/24/16 22:43 Discharge Date: 12/25/16 - Discharge Diagnosis (1) Left leg cellulitis Is this a current diagnosis for this admission?: Yes - Additional Information Resuscitation Status: Full Code Discharge Diet: As Tolerated Discharge Activity: Activity As Tolerated, No Lifting Over 10 Pounds, No Lifting /Push/Pulling Home Medications: Clindamycin HCl [Cleocin 300 mg Capsule] 600 mg PO Q8 #168 cap 12/25/16 Oxycodone HCl/Acetaminophen [Percocet 5-325 mg Tablet] 1 - 2 tab PO ASDIR PRN # 30 tablet 12/25/16 History of Present Illness History of Present Illness: DARNELL FLORES is a 21 year old male sustained an injury while at work on when a steel bar fell onto his left tibia. Patient was seen in the emergency room at that time we received Ancef the wound was cleansed and subsequently closed. He was sent home on Augmentin but did not fill the prescription. He then noticed over the next 24 hours increasing pain swelling and redness and was concerned about infection. He was seen by the emergency room will also was concerned about infection. He received clindamycin. Since last evening and his IV antibiotics he has seen notably improvement with decreased redness and swelling. Did have some numbness and tingling initially but this is also subsided. Denies fever chills or sweats. Pain 4/10. Hospital Course Hospital Course: Patient was admitted for 24 hours of IV antibiotics. On examination 12/25/16 there was some mild irritation on the incision site but no active drainage to suggest deep infection. At that point I felt patient was medically stable for discharge and could be treated successfully with p.o. antibiotics. Physical Exam Vital Signs: Temp Pulse Resp BP Pulse Ox 97.9 F 54 L 12 117/65 100 12/25/16 12:00 12/25/16 12:00 12/25/16 12:00 12/25/16 12:00 12/25/16 12:00 Musculoskeletal exam: PRESENT: other - Left leg: Inverted Y-shaped laceration well approximated. Mild incisional erythema no tracking erythema. No palpable fluctuance. No active drainage. Intact plantar flexion/dorsiflexion. Results Laboratory Results: 12/25/16 05:06 Plan Discharge Plan: Progressed appropriately throughout his hospital course. After 24 hours of antibiotics patient's redness significantly improved. I felt patient was orthopedically stable for discharge to home on p.o. antibiotics. Patient is to follow-up in the office in 7-10 days for recheck. If patient notices increasing pain, redness, swelling, drainage or temperature greater than 101.5 he should call for earlier follow-up appointment or presented to the emergency room.
== END 2016-12-25 14:15 | disposition home or self-care (01) | DRG 603 ==
LOC: ER 18:16 → UNDOADMIN 21:04 → EH 21:04 → 4S 23:21 → EH 23:21
PROVIDERS: ADMIT Orthopaedic Surgery; ATTEND Orthopaedic Surgery
DX: L03.116 Cellulitis of left lower limb (principal); S81.812D Laceration without foreign body, left lower leg, subsequent encounter; W20.8XXA Other cause of strike by thrown, projected or falling object, initial encounter; Y92.69 Other specified industrial and construction area as the place of occurrence of the external cause; Y99.0 Civilian activity done for income or pay; F32.9 Major depressive disorder, single episode, unspecified; F17.210 Nicotine dependence, cigarettes, uncomplicated; F41.9 Anxiety disorder, unspecified; Z79.899 Other long term (current) drug therapy
CPT/HCPCS: 36415; 80053; 85025; 87040; 87077; 87186; 96374; 99284; J1170; J2270; J7120